=== PATIENT | female | born 1940 | race Caucasian/White ===

== ENCOUNTER 2016-11-20 17:42 | Inpatient (IN) | payer MEDICARE, OTHER ==
[2016-11-20] MEDS ORDERED: TYLENOL EXTRA500 M1 PO (19:08)
[2016-11-20] MEDS ORDERED: LIPITOR20 M1 PO (19:08)
[2016-11-20] MEDS ORDERED: IBUPROFEN200 M2 PO (19:09)
[2016-11-20] MEDS ORDERED: MULTIVITAMINS1 EAC6 PO (19:10)
[2016-11-20] MEDS ORDERED: CALCIUM CARBON500 M2 PO (19:10)
[2016-11-20] MEDS ORDERED: VITAMIN D31000 UNI3 PO (19:11)
[2016-11-20] MEDS ORDERED: KRILL OIL PO (19:12)
--- NOTE | 2016-11-20 20:09 | NUR ---
VN NOTE-CALLED [facility] AT 2004-SPOKE WITH TITI IN MEDICAL RECORDS AND REQUESTED THE REPORT ON THE CT SCAN THAT PATIENT HAD DONE THERE EARLIER TODAY.
[2016-11-20 22:58] LABS: INR 1.1 INR (0.9-1.1); PROTHROMBIN TIME 12.2 SECONDS (9.0-13.6)
[2016-11-20 23:16] LABS: C-REACTIVE PROTEIN 8.9 mg/dl (0-0.9)
[2016-11-21 05:01] LABS: BASO % 0.3 % (0-2); EOS % 1.8 % (0-7); EOSINOPHIL ABSOLUTE COUNT 0.1 tho/cmm (0.0-0.7); HCT-HEMATOCRIT 40.8 % (34.0-49.0); HGB-HEMOGLOBIN 13.4 gm/dl (12.0-15.5); IMMATURE GRANULOCYTES ABSOLUTE 0.01 tho/cmm (0-0.03); IMMATURE GRANULOCYTES PERCENT 0.1 % (0-0.3); LYMPH ABSOLUTE COUNT 2.2 tho/cmm (0.8-4.5); MCH (MEAN CORPUSCULAR HGB) 30.9 pg (28.0-32.0); MCHC MEAN CORPUSCULAR HGB CONC 32.8 % (32.0-36.0); MCV (MEAN CELL VOLUME) 94.2 fl (82.0-96.0); MEAN PLATELET VOLUME 10.2 cmc (9.4-12.4); MONO % 8.8 % (0-12); MONOCYTE ABSOLUTE COUNT 0.7 tho/cmm (0.0-1.2); NEUTROPHIL ABSOLUTE COUNT 4.7 tho/cmm (1.6-8.0); NEUTROPHIL-AUTOMATED 4.7 tho/cmm (1.6-8.0); PLATELET COUNT 132 tho/cmm (150-450); RED BLOOD COUNT 4.33 mil/cmm (4.00-5.20); RED CELL DISTRIBUTION WIDTH 12.7 % (12.4-16.4); WHITE BLOOD COUNT 7.8 tho/cmm (4.0-10.0)
[2016-11-21 05:13] LABS: ANION GAP 11 mmol/L (0-20); BLOOD UREA NITROGEN 15 mg/dl (6-24); CALCIUM 8.6 mg/dl (8.5-10.5); CARBON DIOXIDE-VENOUS 29 mmol/L (22-32); CHLORIDE 107 mmol/l (96-110); GLUCOSE 93 mg/dL (70-110); SODIUM 143 mmol/L (135-145); eGFR VALUE FOR BLACK 82 mL/Min
--- NOTE | 2016-11-21 21:49 | NUR ---
VN ROUNDING-PATIENT IS LAYING IN BED ON OXYGEN COMFORTABLE. SHE STATES HER SON BROUGHT HER CPAP MACHINE IN [facility] TO HELP HER HOOK IT UP. PATIENT WANTED TO KNOW DOPPLER RESULTS-EXPLAINED I DO NOT HAVE THEM YET. PATIENT STATES IF NEGATIVE SHE WANTS IMS TO CONTACT DR ALEXANDER SHE MAY HAVE SOME OTHER TESTS TO BE ORDERED BEFORE SHE GOES HOME. PATIENT HAD A HARD TIME UNDERSTANDING SHE MAY NOT HAVE THE SAME IMS DOCTOR ON FRIDAY THAT SHE DID TODAY
[2016-11-22 12:07] LABS: ANION GAP 10 mmol/L (0-20); BLOOD UREA NITROGEN 17 mg/dl (6-24); CALCIUM 9.5 mg/dl (8.5-10.5); CARBON DIOXIDE-VENOUS 30 mmol/L (22-32); CHLORIDE 107 mmol/l (96-110); CREATININE 0.86 mg/dl (0.50-1.10); GLUCOSE 127 mg/dL (70-110); POTASSIUM 3.5 mmol/L (3.7-5.1); SODIUM 143 mmol/L (135-145); eGFR VALUE FOR BLACK 76 mL/Min
[2016-11-22] MEDS ORDERED: XARELTO15 M1 PO (15:58)
[2016-11-22] MEDS ORDERED: COLACE100 M1 PO (15:59)
[2016-11-22] MEDS ORDERED: XARELTO20 M1 PO (15:59)
[2016-11-22] MEDS ORDERED: PROTONIX40 M2 PO (16:01)
[2016-11-22] MEDS ORDERED: STOP THE FOLLOWING (16:02)
== END 2016-11-22 16:30 | DRG 176 ==
LOC: 5WD 17:42
PROVIDERS: Internal Medicine; Registered Nurse; ADMIT Family Medicine
PROC: 5A09357 Assistance with Respiratory Ventilation, Less than 24 Consecutive Hours, Continuous Positive Airway Pressure (ICD-10-PCS; principal; 2016-11-20)
DX: I26.99 Other pulmonary embolism without acute cor pulmonale (principal); I10 Essential (primary) hypertension; G47.33 Obstructive sleep apnea (adult) (pediatric); R20.9 Unspecified disturbances of skin sensation; E55.9 Vitamin D deficiency, unspecified; N39.3 Stress incontinence (female) (male); M85.80 Other specified disorders of bone density and structure, unspecified site; M19.90 Unspecified osteoarthritis, unspecified site; E78.5 Hyperlipidemia, unspecified; Z87.891 Personal history of nicotine dependence; R60.9 Edema, unspecified
CPT/HCPCS: J1650; J2930